=== PATIENT | female | born 1975 | race Caucasian/White ===

== ENCOUNTER 2016-12-28 07:00 | Emergency (ER) | payer MEDICAID, OTHER ==
[~2016-12-28] VITALS: Ht 162.6 cm; Wt 65.8 kg
[2016-12-28] MEDS ORDERED: IBUPROFEN 400 MG TABLET ONE (07:24)
[2016-12-28] MEDS ORDERED: LORAZEPAM 1 MG TABLET ONE (07:24)
--- NOTE | 2016-12-28 07:29 | NUR ---
PT BIBA#860 PT FOUND AT [facility] C/O HEAD, LEG, AND FOOT PAIN. PATIENT A/OX 3, BUT HAS FLIGHT OF IDEAS AND DELUSIONS. BREATHING EVEN AND UNLABORED. NO SOB. VITALS STABLE. BLE REDNESS. SAFETY AND COMFORT MEASURES IN PLACE. AWAITING MD ORDERS .
[2016-12-28] MEDS ORDERED: LORAZEPAM 1 MG TABLET PO ONE (07:30)
[2016-12-28] MEDS ORDERED: IBUPROFEN 400 MG TABLET PO ONE (07:30)
[2016-12-28 07:35] LABS: BASOPHILS # (AUTO) 0.1 /CMM (0.0-0.2); BASOPHILS % (AUTO) 1.2 % (0.0-2.0); EOSINOPHILS # (AUTO) 0.3 /CMM (0.0-0.7); EOSINOPHILS % (AUTO) 3.6 % (0.0-6.0); HEMATOCRIT 42 % (33-45); HEMOGLOBIN 14.1 g/dL (11.5-14.8); LYMPHOCYTES # (AUTO) 1.8 /CMM (0.8-4.8); LYMPHOCYTES % (AUTO) 20.6 % (20.0-44.0); MEAN CORPUSCULAR HEMOGLOBIN 29 PG (26.0-33.0); MEAN CORPUSCULAR HGB CONC 34 g/dl (31.0-36.0); MEAN CORPUSCULAR VOLUME 86 fL (82-100); MONOCYTES # (AUTO) 0.7 /CMM (0.1-1.30); MONOCYTES % (AUTO) 7.4 % (2.0-12.0); NEUTROPHILS % (AUTO) 67.2 % (43.0-81.0); PLATELET COUNT (AUTO) 426 /CMM (150-450); RDW COEFFICIENT OF VARIATION 13.4 (11.5-15.0); RED BLOOD CELL COUNT(AUTO) 4.85 MIL/uL (4.0-5.2)
--- NOTE | 2016-12-28 07:35 | NUR ---
PATIENT MEDICATED PER MD ORDERS.
[2016-12-28 07:39] LABS: CALCIUM, SERUM 8.6 mg/dL (8.5-10.1); CARBON DIOXIDE 28 mmol/L (21-32); CHLORIDE 98 mmol/L (98-107); CREATININE 0.9 mg/dL (0.6-1.3); GLUCOSE 98 mg/dL (74-106); POTASSIUM 3.9 mmol/L (3.5-5.1); SODIUM SERUM 134 mmol/L (136-145); UREA NITROGEN, BLOOD 10 mg/dL (7-18)
[2016-12-28 07:41] LABS: ALCOHOL, BLOOD < 3 mg/dL (0-0)
--- NOTE | 2016-12-28 07:55 | NUR ---
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
[2016-12-28 12:40] LABS: BILIRUBIN,URINE Negative (NEGATIVE); BLOOD, URINE Negative Ery/uL (NEGATIVE); KETONES,URINE Trace (NEGATIVE); LEUKOCYTE ESTERASE ,URINE Negative (NEGATIVE); NITRITE, URINE Negative (NEGATIVE); PROTEIN,URINE Negative (NEGATIVE); UGLUCOSE Negative (NEGATIVE)
[2016-12-28 12:42] LABS: APPEARANCE,URINE Hazy (CLEAR); COLOR,URINE Dark Yellow (YELLOW)
[2016-12-28 12:51] VITALS: BP 132/76
[2016-12-28 12:51] LABS: BACTERIA,URINE None seen /HPF (None Seen); SQUAMOUS EPITHELIAL CELL,UR Few /HPF (None Seen)
--- NOTE | 2016-12-28 12:52 | NUR ---
Patient discharged to home in stable condition. Written and verbal after care instructions given. Patient verbalizes understanding of instruction.
== END 2016-12-28 12:52 | disposition home or self-care (01) ==
LOC: ER 07:03
DX: F20.1 Disorganized schizophrenia (principal); M79.671 Pain in right foot; M79.672 Pain in left foot; G89.29 Other chronic pain; Z88.0 Allergy status to penicillin
CPT/HCPCS: 36415; 80048; 80305; 81001; 85025; 99284; A4606; G0480; Z7610; 81000-TC